=== PATIENT | female | born 2000 | race Caucasian/White ===

== ENCOUNTER 2021-11-20 18:09 | Emergency (ER) | payer OTHER ==
--- NOTE | 2021-11-20 21:12 | ER ---
Nurse's Notes [facility] Name: Mansi Jaquez Age: 21 yrs Sex: Female : 2000 Arrival Date: 11/20/2021 Time: 18:12 Bed Waiting Private MD: Diagnosis: Acute upper respiratory infection, unspecified Presentation: 11/20 19:41 Chief complaint: Patient states: she feels like she has covid. runny nose, sore throat, sm5 cough, diarrhea. Coronavirus screen: Vaccine status: Patient reports being unvaccinated. cough unrelated to allergies, fever, runny nose, sore throat. Ebola Screen: No symptoms or risks identified at this time. Risk Assessment: Do you want to hurt yourself or someone else? Patient reports no desire to harm self or others. Onset of symptoms was November 16, 2021. 19:41 Method Of Arrival: Ambulatory [facility] 19:41 Acuity: TANNER [address] [facility] 21:29 Initial Sepsis Screen: Does the patient meet any 2 criteria? No. Patient's initial 5 sepsis screen is negative. Does the patient have a suspected source of infection? No. Patient's initial sepsis screen is negative. Triage Assessment: 19:44 General: Appears in no apparent distress. Behavior is cooperative. Pain: Complains of sm5 pain in throat. EENT: Throat is clear. Neuro: Level of Consciousness is awake, alert, Oriented to person, place, time, situation. Respiratory: Airway is patent Trachea midline Respiratory effort is even, unlabored. 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 - Social history:: Smoking status: unknown. Screenin:29 Abuse screen: Denies threats or abuse. Denies injuries from another. Nutritional sm5 screening: No deficits noted. Tuberculosis screening: No symptoms or risk factors identified. Fall Risk None identified. Assessment: 21:28 Reassessment: see triage assessment. Respiratory: Reports cough that is Airway is sm5 patent Trachea midline Respiratory effort is even, unlabored, Breath sounds are clear bilaterally. Vital Signs: 19:41 BP 129 / 70; Pulse 94; Temp 98; Pulse Ox 100% ; 5 19:44 Weight 111.13 kg; Height 5 ft. 8 in. (172.72 cm); sm5 19:44 Body Mass Index 37.25 (111.13 kg, 172.72 cm) 5 ED Course: 18:12 Patient arrived in ED. as 19:35 Ashley Aguirre FNP-C is [facility]. kb 19:35 Shorty Brannon MD is Attending Physician. kb 19:44 Triage completed. sm5 21:29 Arm band placed on right wrist. sm5 21:29 Patient has correct armband on for positive identification. sm5 21:29 No provider procedures requiring assistance completed. Patient did not have IV access 5 during this emergency room visit. Administered Medications: No medications were administered Outcome: 21:11 Discharge ordered by . kb 21:30 Discharged to home ambulatory. 5 21:30 Condition: good 21:30 Discharge instructions given to patient, Instructed on discharge instructions, follow up and referral plans. Demonstrated understanding of instructions, follow-up care. 21:30 Patient left the ED. 5 Signatures: Ashley Aguirre FNP-C FNP-Ckb Martinez, Amelia as Mazur, Sarah, RN RN [facility]
--- NOTE | 2021-11-20 21:12 | EDPHYS ---
Physician Documentation [facility] Name: Mansi Jaquez Age: 21 yrs Sex: Female : 2000 Arrival Date: 11/20/2021 Time: 18:12 Bed Waiting Private MD: ED Physician Shorty Brannon HPI: 11/20 21:09 This 21 yrs old Female presents to ER via Ambulatory with complaints of Cough, Sore kb Throat, Runny Nose, Headache, Diarrhea. 21:09 The patient or guardian reports cough. Onset: The symptoms/episode began/occurred 4 kb day(s) ago. Severity of symptoms: At their worst the symptoms were mild, in the emergency department the symptoms are unchanged. Modifying factors: The symptoms are alleviated by nothing, the symptoms are aggravated by nothing. Associated signs and symptoms: Pertinent positives: diarrhea, rhinorrhea, sore throat, Pertinent negatives: chest pain, ear ache, fever, nausea, vomiting. The patient has not experienced similar symptoms in the past. The patient has not recently seen a physician. Pt reports runny nose, cough, diarrhea and sore throat for 4 days. States "I feel like I have covid.". 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 - Social history:: Smoking status: unknown. ROS: 21:09 Cardiovascular: Negative for chest pain, palpitations, and edema. kb 21:09 Constitutional: Positive for malaise. 21:09 ENT: Positive for rhinorrhea, sore throat. 21:09 Respiratory: Positive for cough, Negative for dyspnea on exertion, hemoptysis, orthopnea, pleurisy, shortness of breath, sputum production, wheezing. 21:09 Abdomen/GI: Positive for diarrhea. 21:09 All other systems are negative. Exam: 21:09 Constitutional: This is a well developed, well nourished patient who is awake, alert, kb and in no acute distress. Head/Face: Normocephalic, atraumatic. ENT: Moist Mucous membranes Cardiovascular: Regular rate and rhythm with a normal S1 and S2. No gallops, murmurs, or rubs. No pulse deficits. Respiratory: Respirations even and unlabored. No increased work of breathing. Talking in full sentences Skin: Warm, dry with normal turgor. Normal color. MS/ Extremity: Pulses equal, no cyanosis. Neurovascular intact. Full, normal range of motion. Neuro: Awake and alert, GCS 15, oriented to person, place, time, and situation. Moves all extremities. Normal gait. Psych: Awake, alert, with orientation to person, place and time. Behavior, mood, and affect are within normal limits. Vital Signs: 19:41 BP 129 / 70; Pulse 94; Temp 98; Pulse Ox 100% ; sm5 19:44 Weight 111.13 kg; Height 5 ft. 8 in. (172.72 cm); sm5 19:44 Body Mass Index 37.25 (111.13 kg, 172.72 cm) sm5 MDM: 19:44 Patient medically screened. kb 21:11 Data reviewed: vital signs, nurses notes. Data interpreted: Pulse oximetry: on room air kb is 100 %. Interpretation: normal. Counseling: I had a detailed discussion with the patient and/or guardian regarding: the historical points, exam findings, and any diagnostic results supporting the discharge/admit diagnosis, lab results, the need for outpatient follow up, a family practitioner, to return to the emergency department if symptoms worsen or persist or if there are any questions or concerns that arise at home. 11/20 19:45 Order name: Flu; Complete Time: 20:50 kb 11/20 19:45 Order name: COVID-19 (Coronavirus) Document "Date of Onset" if Symptomatic kb Administered Medications: No medications were administered Disposition: 11/21 00:37 Co-signature as Attending Physician, Shorty Brannon MD. [email or web address] Disposition Summary: 11/20/21 21:11 Discharge Ordered Location: Home kb Condition: Stable kb Diagnosis - Acute upper respiratory infection, unspecified kb Followup: kb - With: Emergency Department - When: As needed - Reason: Worsening of condition Followup: kb - With: Private Physician - When: 2 - 3 days - Reason: Recheck today's complaints, Continuance of care, Re-evaluation by your physician Discharge Instructions: - Discharge Summary Sheet kb - Upper Respiratory Infection, Adult, [id number] kb - Viral Respiratory Infection, [id number] kb Forms: - Medication Reconciliation Form kb - Thank You Letter kb - Antibiotic Education kb - Prescription Opioid Use kb Signatures: Dispatcher [employer] EDAshley Mullins, TWISTER OPERATOR-C TWISTER OPERATOR-Shorty Ramos MD MD pkl Mazur, Sarah, RN RN sm5
[2021-11-20 21:44] VITALS: BP 129/70; TEMP 98; O2SAT 100
== END 2021-11-20 21:30 | disposition home or self-care (01) ==
LOC: ER 18:09
DX: J06.9 Acute upper respiratory infection, unspecified (principal); Z20.822 Contact with and (suspected) exposure to COVID-19
CPT/HCPCS: 87804 ×2; 99281; U0002